=== PATIENT | female | born 1970 | race Two or more races ===

== ENCOUNTER 2024-08-17 08:06 | Day surgery (SDC) | payer MEDICAID ==
[2024-08-09 10:35] LABS: Basophils # (auto) 0 10 ^3/uL (0-0.2); Basophils % (auto) 0.9 % (0.0-2.0); Eosinophils # (auto) 0.1 10 ^3/uL (0-0.8); Eosinophils % (auto) 2.4 % (0.0-7.0); Hematocrit 40.8 % (36.0-46.0); Hemoglobin 13.7 g/dL (12.2-16.2); Lymphocytes # (auto) 1.8 10 ^3/uL (0.4-5.4); Lymphocytes % (auto) 37.2 % (10.0-50.0); Mean Corpuscular Hemoglobin 29.9 pg (28.0-32.0); Mean Corpuscular Hgb Conc. 33.6 g/dL (32.0-36.0); Monocytes # (auto) 0.3 10 ^3/uL (0-1.3); Monocytes % (auto) 5.5 % (0.0-12.0); Neutrophils # (auto) 2.6 10 ^3/uL (1.6-8.6); Nucleated Red Blood Cells % 0.1 %; Platelet Count (auto) 170 10^3/uL (140-450); Red Blood Cells 4.58 10^6/uL (4.0-5.20); Red Cell Distribution Width 14.4 % (11.8-14.3); White Blood Cell 4.7 10^3/uL (4.4-10.8)
[2024-08-09 10:41] LABS: INR 0.97 (0.9-1.15); Partial Thromboplastin Time 27.6 SEC (24.5-34.5); Prothrombin Time 10.3 sec (9.3-11.8)
[2024-08-09 10:43] LABS: Alanine Aminotransferase 20 U/L (7-40); Alkaline Phosphatase 84 U/L (46-116); Anion Gap 8 (5-15); Aspartate Aminotransferase 9 U/L (13-40); BUN/Creatinine Ratio 10.1 (10.0-20.0); Blood Urea Nitrogen 12 mg/dL (9-23); Calcium 9.6 mg/dL (8.7-10.4); Carbon Dioxide 30 mmol/L (20-31); Chloride 104 mmol/L (98-107); Glucose 94 mg/dL (74-106); Potassium 3.9 mmol/L (3.5-5.1); Sodium 142 mmol/L (136-145); Total Protein 6.7 g/dL (5.7-8.2)
[2024-08-09 10:44] LABS: Albumin 4.4 g/dL (3.2-4.8); Bilirubin, Total 0.6 mg/dL (0.2-1.0)
[~2024-08-17] VITALS: Ht 157.5 cm; Wt 90.7 kg
[2024-08-17] MEDS ORDERED: ceFAZolin 2 GM/D5W50ml 50 ML IV ONE (08:15)
[2024-08-17] MEDS ORDERED: MIDAZOLAM HCL 2MG/2ML 2ml VIAL (1mg/ml) ONE (09:36)
[2024-08-17] MEDS ORDERED: PROPOFOL 10 MG/ML 20 ML IV ONE (09:36)
[2024-08-17] MEDS ORDERED: fentaNYL CITRATE 100 MCG/2 ML VL ONE (09:36)
--- NOTE | 2024-08-17 09:36 | DVHOP2 ---
Operative Report - 2 Report Details Date: 08/17/24 Preop Diagnosis: 1. Right foot exostosis 2. Right fifth toe hammer toe 3. Left foot exostosis 4. Left fifth toe hammer toe 5. Bilateral foot pain Postop Diagnosis: Right 5th toe hammer toe and exostosis Surgeon: Sarahy Love MD Anesthesiologist: See anesthesia Anesthesia: Mac Consent: The patient was informed of the risks and benefits of the procedure. These include but are not limited to complications of anesthesia, postoperative infection, incomplete relief of symptoms, recurrence of symptoms, damage to blood vessels, nerves and tendons, deep venous thrombosis, pulmonary embolism and possible need for repeat surgery in the future. Complications: None Estimated Blood Loss: Minimal Fluids: See anesthesia Findings: Consistent with the diagnosis Indications for Surgery: Worsening bilateral foot pain Name of Procedure Performed 1. Right foot exostectomy (70904) 2. Right foot rotational fifth toe hammertoe repair (02836) 3. Left foot exostectomy (16894) 4. Left foot rotational fifth toe hammertoe repair (23723 Procedure Details Procedure Details: PRE-PROCEDURE INFORMATION: In the pre-op holding area, the extremity to be operated on was clearly marked and the patient verified correct laterality of the marking. The patient was transferred to the OR table and placed in a supine position. A timeout was performed in which identification of the correct patient, procedure, location, and materials was done. The bilateral foot and leg were prepped and draped in normal sterile fashion. DESCRIPTION OF PROCEDURE: Attention was directed to the left 5th digit where the exostosis was located. A stab incision was made just medial to the 5th digit. The incision was deepened through blunt and sharp dissection. Care was taken to avoid any neurovascular and tendinous structures. Using the Arthrex MIS bur, the exostosis was then removed in its entirety. There was also a partial proximal phalanx osteotomy to allow correction of the hammertoe. After the bur was used the exostosis was no longer felt clinically and the toe was clinically stridor. The incision was closed with a 4-0 nylon. Attention was directed to the right 5th digit where the exostosis was located. A stab incision was made just medial to the 5th digit. The incision was deepened through blunt and sharp dissection. Care was taken to avoid any neurovascular and tendinous structures. Using the Arthrex MIS bur, the exostosis was then removed in its entirety. There was also a partial proximal phalanx osteotomy to allow correction of the hammertoe. After the bur was used the exostosis was no longer felt clinically and the toe was clinically stridor. The incision was closed with a 4-0 nylon. All surgical wounds were irrigated copiously with saline and closed in layers with the aforementioned suture material. A dry sterile dressing was placed on the surgical extremity. The patient was placed in a postop shoe POSTOPERATIVE INFORMATION: The patient tolerated the above noted procedure and anesthesia well and was transferred to the PACU with vital signs stable, and vascular status intact with capillary refill intact to all digits. Postoperative instructions reviewed in detail with the patient with written instructions provided. Patient will return to clinic in approximately 10-14 days for first postoperative visit. Patient has the number of the clinic and was instructed to call prior to that time should any problems, questions, or concerns arise. Condition Good Disposition Home SARAHY LOVE DPM August 17, 2024 09:36
[2024-08-17] MEDS ORDERED: LIDOCAINE W/ EPINEPHRINE 1% 20ML VIAL ONE (09:37)
[2024-08-17] MEDS ORDERED: METOCLOPRAMIDE HCL 5MG/ml INJ 2ml VIAL ONE (09:39)
[2024-08-17] MEDS ORDERED: ONDANSETRON HCL 4 MG/2 ML VIAL ONE (09:39)
[2024-08-17] MEDS: BUPIVACAINE 0.5% P/F INJ 10 ML VIAL ONE (09:45)
[2024-08-17 09:55] VITALS: PULSE 79; RESP 16; TEMP 97.4; O2SAT 97
[2024-08-17] MEDS ORDERED: KETOROLAC TROMETH 30 MG/ML 1ML VIAL IV ONE (10:15)
[2024-08-17] MEDS ORDERED: HYDROmorphone HCL 2 MG/ML VL/or syr IV PRN (10:15)
[2024-08-17] MEDS ORDERED: hydrALAZINE HCL 20 MG/ML VL IV PRN (10:15)
[2024-08-17] MEDS ORDERED: ONDANSETRON HCL 4 MG/2 ML VIAL IV ONE (10:15)
[2024-08-17 11:00] VITALS: BP 135/75; PULSE 75; RESP 13; O2SAT 99
== END 2024-08-17 11:05 | disposition home or self-care (01) ==
LOC: SUR 08:06
PROVIDERS: ATTEND Podiatrist
DX: M20.42 Other hammer toe(s) (acquired), left foot (principal); M20.41 Other hammer toe(s) (acquired), right foot; D16.31 Benign neoplasm of short bones of right lower limb; D16.32 Benign neoplasm of short bones of left lower limb; Z79.899 Other long term (current) drug therapy; Z98.890 Other specified postprocedural states
CPT/HCPCS: 28285; 36415; 80053; 81025; 84702; 85025; 85610; 85730; J0690; J2250; J2405; J2704; J2765; J3010; L3260; J3490